=== PATIENT | female | born 1935 | race Caucasian/White ===

== ENCOUNTER 2023-08-06 15:30 | Outpatient (RCR) | payer MEDICARE, OTHER, SELFPAY ==
--- NOTE | 2023-06-23 17:19 | ST.OPIE ---
Visit Care Team Role Provider Type Goran Mcnair MD Family Provider Non-Staff Primary Care Provider Specialty: Family Practice Address: [address] [place] [address], [address] Email: Hernan Harris MD Attending Provider Non-Staff Referring Provider Specialty: Neuropsychology Address: [address] [facility] [id number], [place], [address] Email: Speech-Language Pathology Initial Evaluation YARDER ENGINEER Clinical Swallow Evaluation Start: 06/22/23 18:07 Freq: Status: Active Protocol: Document 06/22/23 18:08 (Rec: 06/22/23 18:10 [id number]) Clinical Swallow Evaluation Session Time Visit Start Time 13:00 Visit Stop Time 14:15 Total Visit Minutes 75 Visit Information Visit Number 1 Plan of Care Dates 06/22/2023-09/21/2023 Setting Assessment Location Outpatient Care Visit Type Note Type Initial evaluation Patient Information Identification Type Name,Date of History pt diagnosed with PSP ( progressive supranuclear palsy ), demonstrating increased difficulty w swallowing. Subjective Observations Pt verbalized reduced field of vision, with loss of center field, relying on peripherals. Reported by Patient/Caregiver Pain/Discomfort No Other Symptoms Choking,Coughing,Difficulty swallowing liquids,Other Comment Pt noted reduced sensation, with frequent coughing on saliva, as well as thin liquids. Baseline Feeding Method Independent in self-feeding Type of Patient Questionnaire (e.g., EAT PROMIS GDS -10, MDADI, etc.) Results score 14/58.0, indicative of mild swallowing impairment. Pt noted difficulty w liquids, denied difficulty with solids or pills, however, takes pills one at a time and very carefully, and typically does not eat harder foods like raw vegetables. Pt states she tries to only take one drink at a time, as two or three resuls in aspiration/ reflexive cough response. The IDDSI Framework Protocol: IDDSI.1 Objective Assessment Mental Status Alert Oral Integrity WFL Dentition Within normal limits Lip Function Mild impairment Pucker Reduced range of motion, Reduced strength Lip Retraction Reduced range of motion Alternating Pucker/Lip Retraction Reduced range of motion, Incoordination Tongue Function Mild impairment Tongue Lateralization Reduced range of motion, Reduced strength Comment head and neck also appear stiff with reduced movements. Food and Liquid Trials Position During Assessment Upright (90 degrees) Liquids Trialed Thin (IDDSI 0) Administration Type Cup single sip,Cup consecutive sips Oral Impairment Mildly impaired Oral Phase Comments reduced bolus control, slowed movement with reduced sensation suspected, premature spillage. Pharyngeal Impairment Mildly impaired Pharyngeal Phase Comments d/t PSP, all motor movements are generally weakened and slowed, with some incoordination. Response/Comments ST provided education on importance of oral care in the reduction of risk in developing aspiration PNA given the progressive nature of PSP and high risk. Results unable to complete multiple swallows The IDDSI Framework Protocol: IDDSI.1 Findings Swallowing Function Oropharyngeal phase dysphagia Severity of Swallow Impairment Mildly-moderately impaired Contributing Factors to Swallow Reduced oral strength/ Impairment coordination/sensation,Delayed swallow initiation,Impaired airway protection Comment Patient would benefit from skilled ST to improve oropharyngeal swallow function as able, and to provide education/training for compensatory and safe swallowing strategies to reduce the risk of aspiration and aspiration PNA. Impact on Safety and Functioning Risk for aspiration Recommendations Instrumental Assessment No Swallowing Treatment Yes Frequency 1x/wk Duration 12 weeks Recommended Solids Soft & Bite-sized (IDDSI 6) Recommended Liquids Thin (IDDSI 0) Other Recommendations Instrumentals are often not indicative of true severity of deficits as focus and attention are improved during eval vs home intake. MBS may need to be performed in the future. Safety Precautions/Swallowing Remain upright (90 degrees) Recommendations during all oral intake,Small bites and sips when eating, Slow rate; swallow between bites Medication Recommendations As Tolerated Education Patient/Caregiver Education Patient expressed understanding of evaluation, Patient expressed agreement with goals & treatment plans, Family/caregivers expressed understanding of evaluation, Family/caregivers expressed agreement with goals & treatment plans Goals Short-term Goals The patient will complete swallowing rehab exercises as trained, with 75% accuracy in session and at 75% of targeted dosages w home program, in order to improve oropharyngeal swallow function and safety. Long-term Goals Utilizing compensatory/safe swallow strategies as trained, and following completion of rehab exercises as able, pt will reduce s/s of penetration /aspiration and overall risk of aspiration PNA.
--- NOTE | 2023-06-30 15:55 | ST.OPTN ---
Visit Care Team Role Provider Type Goran Mcnair MD Family Provider Non-Staff Primary Care Provider Address: [address] [place] [address], [place], [address] Hernan Harris MD Attending Provider Non-Staff Referring Provider Address: [address] [facility] [id number], [place], [address] VETERINARY PRACTITIONER Treatment Note VETERINARY PRACTITIONER Treatment Note Start: 06/22/23 18:07 Freq: Status: Active Protocol: Document 06/30/23 15:44 (Rec: 06/30/23 15:55 [id number]) Speech Pathology Treatment Note Session Time Visit Start Time 14:45 Visit Stop Time 15:45 Total Visit Minutes 60 Visit Information Plan of Care Dates 06/22/2023-09/21/2023 Setting Treatment Setting Outpatient Care Visit Type Note Type Treatment Note General Information Patient History pt diagnosed with PSP ( progressive supranuclear palsy ), demonstrating increased difficulty w swallowing. Assessment Patient Response to Treatment Fair Rehab Potential Fair Assessment of Improvement Pt recalled compensatory strategies w 50% accuracy. ST reviewed and re-explained reasoning for use w good return. Pt stated she had completed effortful swallows, but was unable to recall dosage or how many she had completed. ST trained in diaphagmatic breathing w extended ah as an exercise to improve breath support and cough response. Pt verbalized concerns that she was having trouble remembering to complete exercises, as she could not read the directions and did not have any water. ST encouraged spousal support to help recall and provide water. stated he keeps her in water but that thier schedules didn't overlap for much of the day (early bird vs night owl). verbalized limited willingness to remind pt to complete exercises, but mentioned asking daughter to set alarms as remnders. ST emailed exercise directions to home email so that pt could zoom in and read them on the computer or print them larger. ST reviewed importance of good oral care to reduce the risk of aspiration PNA and encouraged pt to increasecompletion of exercises and use of compensatory strategies. ST briefly eductaed on risks v benefits of thickened liquids. Reviewed with Patient Home Exercise Program Patient/Caregiver Understanding Fair Plan Frequency of Treatment Once a Week Length of Session 45 Minutes Provided Patient/Caregiver Instruction Home Exercise Program, Questions/Concerns
--- NOTE | 2023-07-07 16:48 | ST.OPTN ---
Visit Care Team Role Provider Type Goran Mcnair MD Family Provider Non-Staff Primary Care Provider Address: [address] [place] [address], [place], [address] Hernan Harris MD Attending Provider Non-Staff Referring Provider Address: [address] [facility] [address], [place], [address] CARBON PASTE MIXER OPERATOR Treatment Note CARBON PASTE MIXER OPERATOR Treatment Note Start: 06/22/23 18:07 Freq: Status: Active Protocol: Document 07/07/23 16:30 (Rec: 07/07/23 16:48 [id number]) Speech Pathology Treatment Note Session Time Visit Start Time 16:00 Visit Stop Time 16:30 Total Visit Minutes 30 Visit Information Plan of Care Dates 06/22/2023-09/21/2023 Setting Treatment Setting Outpatient Care Visit Type Note Type Treatment Note General Information Patient History pt diagnosed with PSP ( progressive supranuclear palsy ), demonstrating increased difficulty w swallowing. Assessment Patient Response to Treatment Fair Rehab Potential Fair Assessment of Improvement Pt stated she had completed extended 'ahh exercises a couple times, but didn't see the point of them, that she had been completing swallows, but was only able to complete a few at a time, and required a larger drink to trigger the swallow, and can't drink that much water. Pt stated she had been using mouthwash during the day but only brushing once a day. Pt stated she felt she had been coughing less w intake, utilizing the safe swallowing strategies. ST reviewed and re -explained reasoning for exercises and oral care, all for the reduction of risk in developing aspiration PNA, which given her disease, she is at a fairly high risk for, if not now, then potentially down the road as the disease progresses. ST provided simplified education on the three pillars of aspiration ( active aspiration, poor oral care and compromised immune system) and that targeting those areas were the guerra to a dramatic reduction in her risk. Patient and verbalized understanding. ST facilitated effortful swallow exercise. Pt demonstrated limited ability to produce a hard swallow, most trials looked/felt like a regular swallow or mildly stronger. Pt also demonstrated a cough x3 during exercises, and taking a larger drink than recommended. ST suggested that patient trial hard swallows with thicker boluses, eg, yogurt, pudding, milkshake, or just food she was eating drinking, to increase amount completed and amount of effort produced. ST has concern for patient not being able to complete exercise at a high enough dosage to improve the swallow. Patient's stated he had forgotten to get an electric toothbrush and to ask daughter to help w timers as reminders but would be doing that today if possible. Patient and reiterated that they would like to complete the exercises given at home and try to get into a routine w them, with a session in 4 weeks to check progress/ success, as they are feeling overwhelmed w appts, and feel this is something that just needs practice. Reviewed with Patient Home Exercise Program Patient/Caregiver Understanding Fair Plan Frequency of Treatment Once a Week Length of Session 45 Minutes Provided Patient/Caregiver Instruction Home Exercise Program, Questions/Concerns
--- NOTE | 2023-08-06 16:07 | ST.OPDS ---
Visit Care Team Role Provider Type Goran Mcnair MD Family Provider Non-Staff Primary Care Provider Address: [address] [place] [address], [place], [address] Hernan Harris MD Attending Provider Non-Staff Referring Provider Address: [address] [facility] [address], [place], [address] PARIMUTUEL CASHIER Discharge Note PARIMUTUEL CASHIER Treatment Note Start: 06/22/23 18:07 Freq: Status: Active Protocol: Document 08/06/23 15:51 DH (Rec: 08/06/23 16:07 [id number]) Speech Pathology Treatment Note Session Time Visit Start Time 15:30 Visit Stop Time 15:55 Total Visit Minutes 25 Visit Information Plan of Care Dates 06/22/2023-09/21/2023 Setting Treatment Setting Outpatient Care Visit Type Note Type Treatment Note General Information Patient History pt diagnosed with PSP ( progressive supranuclear palsy ), demonstrating increased difficulty w swallowing. Subjective Patient Knowledge/Awareness of PARIMUTUEL CASHIER Role Good in Treatment Parent/Caretake Knowledge/Awareness of Good PARIMUTUEL CASHIER Role in Treatment Patient/Caregiver Compliance with Home Poor Exercise Program Objective Short Term Goals The patient will complete swallowing rehab exercises as trained, with 75% accuracy in and at 75% of targeted dosages w home program, in order to improve oropharyngeal swallow function and safety. GOAL DISCONTINUED Avian Keeper Goals Utilizing compensatory/safe swallow strategies as trained, and following completion of rehab exercises as able, pt will reduce s/s of penetration /aspiration and overall risk of aspiration PNA. GOAL MET Assessment Patient Response to Treatment Fair Rehab Potential Fair Progress Towards Goals Appropriate for Discharge Assessment of Overall Progress Improving Assessment of Improvement Pt stated that she had been completing the hard swallows when she thinks about it and again stated she can't drink that much water. ST reviewed previous suggestion that she employ the hard swallow with her regular foods or with pudding etc. Pt stated she does sometimes use w meals as well. Pt stated she tries to remember to use the mouthwash during the day and that she had been using the electric toothbrush, but that it tickles her tongue and sometimes bumps against her teeth, making her concerned it might hurt her teeth. ST reassured her that it would not damage her teeth, and recommended continued use of the electric tooth for her teeth, but using her regular toothbrush for her tongue to reduce the tickle. ST reviewed reasoning for good oral care, for the reduction of risk in developing aspiration PNA, which given her disease, she is at a fairly high risk for, if not now, then potentially down the road as the disease progresses. Pt stated she felt she had been coughing less w intake, utilizing the safe swallowing strategies. verbalized that the strategy of eating at the table and not in the recliner had really helped, and that he thought she wasn't really coughing at all any more. stated that he now coughs more than her, because they watch Jeopardy at the table and he tends to talk to the tv with food in his mouth. Patient and verbalized , with ST in agreement, that while pt is unable to complete exercise program as recommended, given her success with the compensatory strategies and min/no overt cough noted by , combined with her increased oral care, pt would be appropriate for d/c at this time. Pt plans to continue using strategies of being up at the table for meals, and using small bites with hard swallows. Reviewed with Patient Home Exercise Program Patient/Caregiver Understanding Fair Plan Frequency of Treatment No Further Therapy Length of Session 45 Minutes Provided Patient/Caregiver Instruction Home Exercise Program, Questions/Concerns Therapy Recommendations Discharge from Speech Therapy
--- NOTE | 2023-08-06 16:10 | ST.OPTN ---
Visit Care Team Role Provider Type Goran Mcnair MD Family Provider Non-Staff Primary Care Provider Address: [address] [place] [address], [place], [address] Hernan Harris MD Attending Provider Non-Staff Referring Provider Address: [address] [facility] [address], [place], [address] SCRAP BURNER Treatment Note SCRAP BURNER Treatment Note Start: 06/22/23 18:07 Freq: Status: Active Protocol: Document 08/06/23 15:51 DH (Rec: 08/06/23 16:07 [id number]) Speech Pathology Treatment Note Session Time Visit Start Time 15:30 Visit Stop Time 15:55 Total Visit Minutes 25 Visit Information Plan of Care Dates 06/22/2023-09/21/2023 Setting Treatment Setting Outpatient Care Visit Type Note Type Treatment Note General Information Patient History pt diagnosed with PSP ( progressive supranuclear palsy ), demonstrating increased difficulty w swallowing. Subjective Patient Knowledge/Awareness of SCRAP BURNER Role Good in Treatment Parent/Caretake Knowledge/Awareness of Good SCRAP BURNER Role in Treatment Patient/Caregiver Compliance with Home Poor Exercise Program Objective Short Term Goals The patient will complete swallowing rehab exercises as trained, with 75% accuracy in and at 75% of targeted dosages w home program, in order to improve oropharyngeal swallow function and safety. GOAL DISCONTINUED Protective Signal Repairer Helper Goals Utilizing compensatory/safe swallow strategies as trained, and following completion of rehab exercises as able, pt will reduce s/s of penetration /aspiration and overall risk of aspiration PNA. GOAL MET Assessment Patient Response to Treatment Fair Rehab Potential Fair Progress Towards Goals Appropriate for Discharge Assessment of Overall Progress Improving Assessment of Improvement Pt stated that she had been completing the hard swallows when she thinks about it and again stated she can't drink that much water. ST reviewed previous suggestion that she employ the hard swallow with her regualr foods or with pudding etc. Pt stated she does sometimes use w meals as well. Pt stated she tries to remember to use the mouthwash during the day and that she had been using the electric toothbrush, but that it tickles her tongue and sometimes bumps against her teeth, making her concerned it might hurt her teeth. ST reassured her that it would not damage her teeth, and recommended continued use of the electric tooth for her teeth, but using her regular toothbrush for her tongue to reduce the tickle. ST reviewed reasoning for good oral care, for the reduction of risk in developing aspiration PNA, which given her disease, she is at a fairly high risk for, if not now, then potentially down the road as the disease progresses. Pt stated she felt she had been coughing less w intake, utilizing the safe swallowing strategies. verbalized that the strategy of eating at the table and not in the recliner had really helped, and that he thought she wasn't really coughing at all any more. stated that he now coughs more than her, because they watch Jeopardy at the table and he tends to talk to the tv with food in his mouth. Patient and verbalized , with ST in agreement, that while pt is unable to complete exercise program as recommended, given her success with the compensatory strategies and min/no overt cough noted by , combined with her increased oral care, pt would be appropriate for d/c at this time. Pt plans to continue using strategies of being up at the table for meals, and using small bites with hard swallows. Reviewed with Patient Home Exercise Program Patient/Caregiver Understanding Fair Plan Frequency of Treatment No Further Therapy Length of Session 45 Minutes Provided Patient/Caregiver Instruction Home Exercise Program, Questions/Concerns Therapy Recommendations Discharge from Speech Therapy
--- OUTSIDE RECORDS SUMMARY | 2023-09-11 14:54 | XMS_ITS | Referral Summary ---
Author Name Unknown Organization [facility] Address [address] [place] [address] Care Team Providers Care Bibliographic Services Specialist Name Role Phone Goran Mcnair MD Primary Care Provider [phone] Hernan Harris MD Unavailable Gail Jackson MD Unavailable [phone] Reason for Referral * Physical/ Occ/ Speech Therapy (Routine) - In Process Specialty Diagnoses / Procedures Referred By Marco Antonio kelly Referred To Contact Diagnoses PSP (progressive supranuclear palsy) (HCC) Hernan Harris MD [address] [facility] [id number] [place] [address] PATIENT PREFERENCE Referral ID Status Reason Start Date Expiration Date Visits Requested Visits Authorized [id number] In Process Needs Appt 04/15/2023 04/14/2024 1 1 Scheduling Instructions Referral to: Patient Preference (POS [id number]) Please be aware that while I, as your health care provider, have identified this referral as medically indicated, I cannot guarantee your insurance plan will cover it. I recommend you contact your insurance carrier to make sure this is a covered service they will pay for. * Physical/ Occ/ Speech Therapy (Routine) - In Process Specialty Diagnoses / Procedures Referred By Marco Antonio kelly Referred To Contact Diagnoses PSP (progressive supranuclear palsy) (HCC) Hernan Harris MD [address] [facility] [id number] [place] [address] [address] Referral ID Status Reason Start Date Expiration Date Visits Requested Visits Authorized [id number] In Process Needs Appt 04/15/2023 04/14/2024 1 1 Scheduling Instructions Referral to: [facility] Please be aware that while I, as your health care provider, have identified this referral as medically indicated, I cannot guarantee your insurance plan will cover it. I recommend you contact your insurance carrier to make sure this is a covered service they will pay for. Reason for Visit * Reason Comments Parkinson's Disease Follow up Encounter Details Date Type Department Care Team Description 04/15/2023 Office Visit [facility] [address] [facility], [address] [place] [address] Hernan Harris MD [address] [facility] [id number] [place] [address] Dx: PSP (progressive supranuclear palsy) ([facility]) (Primary Dx) Allergies Active Allergy Reactions Severity Noted Date Comments Carbidopa W-Levodopa Other Low 03/19/2021 Pt complains of changes in eyesight when taking this medication. Ciprofloxacin Other Low 09/16/2017 Other reaction(s): Other (Comment) Codeine Other High 03/25/2017 goes deaf Other reaction(s): Adverse Drug Reaction, Other (Comment) goes deaf goes deaf goes deaf Macrolides And Ketolides Other Low 03/25/2017 Unknown Mercuric Oxide Angioedema/lip, tongue swelling 03/14/2020 Naproxen Other,Unknown Low 03/25/2017 unknown Other reaction(s): Adverse Drug Reaction, Undetermined unknown unknown unknown Nitrofurantoin Other Low 09/16/2017 Other reaction(s): Other (Comment) Sulfa Antibiotics Other Low 03/25/2017 itchiness Zinc Other,Angioedema/lip , tongue swelling,Swelling High 03/25/2017 Swelling and bumps Swelling and bumps Swelling and bumps Swelling and bumps documented as of this encounter (statuses as of 05/21/2023) Medications Medication Sig Dispensed Refills Start Date End Date Status aspirin 81 MG EC tablet Take 81 mg by mouth daily. 0 Active cholecalciferol 50 MCG (2000 UT) tablet Take 1 tablet by mouth daily. 0 Active buPROPion SR 100 MG 12 hr tablet Take 100 mg by mouth daily. 0 04/24/2021 Active raNITIdine 300 MG tablet Take 300 mg by mouth at bedtime. 0 Active levothyroxine 75 MCG tablet Take 1 tablet by mouth daily. 0 Active [place]-3 Fatty Acids (KP Fish Oil) 1200 MG capsule Take 1 capsule by mouth 2 times a day. 0 Active CRANBERRY OR Take 1 tablet by mouth 2 times a day. 0 Active raloxifene 60 MG tablet Take 60 mg by mouth daily. 0 05/16/2021 Active multivitamin with minerals tablet Take 1 tablet by mouth daily. 0 Active pyridoxine 100 MG tablet Take 1 tablet by mouth daily. 0 Active BIOTIN OR Take 1 tablet by mouth daily. 0 Active alendronate 70 MG tablet Take 70 mg by mouth one time a week. 0 01/02/2022 Active carbidopa-levodopa 25-100 MG tabletIndications:Pr imary parkinsonism (HCC) Follow clinic titration up to 8 tabs per day 240 tablet 2 06/06/2022 Active documented as of this encounter (statuses as of 05/21/2023) Active Problems No known active problems documented as of this encounter (statuses as of 05/21/2023) Social History Tobacco Use Types Packs/Day Years Used Date Smoking Tobacco: Former Sex Assigned at Date Recorded Not on file documented as of this encounter Last Filed Vital Signs Vital Sign Reading Time Taken Comments Blood Pressure 133/66 04/15/2023 12:48 PM PDT Pulse 74 04/15/2023 12:48 PM PDT Temperature 37.1 ??C (98.8 ??F) 04/15/2023 12:48 PM P DT Respiratory Rate - - Oxygen Saturation 95% 04/15/2023 12:48 PM PDT Inhaled Oxygen Concentration - - Weight 65.8 kg (145 lb) 04/15/2023 12:48 PM PDT Height 160 cm (5' 3) 04/15/2023 12:48 PM PDT Body Mass Index 25.69 04/15/2023 12:48 PM PDT documented in this encounter Patient Instructions * Patient Instructions* Hernan Harris MD - 04/15/2023 1:00 PM PDT For your swallowing issue, will make a referral to swallow specialist (speech therapist) at 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 She was last seen on 01/08/2023. Brief HPI: Ms. Schulz is a RH (but really ambidextrous) woman with strong family history of ET. She reported onset of hand tremor over 10 years ago (10-20 years). She was evaluated by neurologist in 2016 for tremor and no parkinsonian features were noted at the time. She later was seen by Dr. 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 Previous C/L was limited and low dose. 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 Does report to have balance problem - Vision continues to worsen - Squinting her eyes now more out of habit - Reporting swallowing difficulty - Still interested in clinical trials - Wondering if her exposure ([place] nuclear [place]) puts her at risk of PSP Problem List PSP Physical Exam: BP 133/66 Pulse 74 Temp 37.1 ??C (Temporal) Ht 5' 3 (1.6 m) Wt 65.8 kg (145 lb) SpO2 95% BMI 25.69 kg/m?? GEN: NAD, accompanied by NEURO: Awake, alert, speech is fluent without dysarthria, affect is appropriate. Squinting her left eye most of the time. 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 Discussed about PSP and potential symptoms in the future. She is still interested in clinical trials. I am not aware of a therapy clinical trial for PSP currently and verified with clinicaltrials.gov today. Will keep her posted if I learn about more possibilities in the future. In terms of symptom management, will refer to PT and [employer] PER CLICK STRATEGIST. She prefers to be closer to home thus will place referral to [facility]. Talked about online support group. I am not sure if her exposure in 1940s may be related to her current development of PSP; we broadly talked about exposure and Parkinson disease but not sure if this can be directly applied to PSP. I spent a total time of 37 minutes in this encounter, including pre-visit chart review, [id number] with the patient, and post-visit documentation and coordination of care. documented in this encounter Plan of Treatment Upcoming Encounters Date Type Specialty Care Team Description 10/28/2023 Office Visit Neurology Hernan Harris MD [address] [facility] [id number] [place] [id number] 12/02/2023 Office Visit Ophthalmology Leighton Segura MD [address] [place] [address] Scheduled Referrals Name Type Priority Associated Diagnoses Orde r Schedule Referral to Speech Therapy Referral Routine PSP (progressive supranuclear palsy) (HCC) Expected: 04/15/2023, Expires: 04/15/2024 Referral to Physical Therapy - Neurologic (TBI, SCI, MS, Stroke) Referral Routine PSP (progressive supranuclear palsy) (HCC) Expected: 04/15/2023, Expires: 04/15/2024 documented as of this encounter Visit Diagnoses Diagnosis 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 [address] [place], [place] [id number] [employer] [facility] Op[facility] 09/25/22 documented as of this encounter
== END 2023-08-14 09:16 ==
LOC: SP 15:30
PROVIDERS: Family Provider Family Medicine; PCP Family Medicine; Referring Provider Psychiatry & Neurology Neurology; Visit Provider Psychiatry & Neurology Neurology
DX: G23.1 Progressive supranuclear ophthalmoplegia [Steele-Richardson-Olszewski] (principal)
CPT/HCPCS: 92526; 92610